=== PATIENT | female | born 1960 | race Caucasian/White ===

== ENCOUNTER → 2017-08-15 | Outpatient (CLI) | payer OTHER ==
[~2017-08-15] MED LIST: ALBU90OI INH; AZIT250 PO; CEPH500 PO; CLIN150 PO; CODACE30 PO; DIAZ5 PO; IBUP600 PO; IBUP800 PO; KETO10 PO; MUPI2TC TOP; NAPR500 PO; NAPR500ERA PO; Naprosyn500 MG PO; Norco 5-325 Ta1 EACH PO; OXYACE5T PO; PENVK500 PO; PRED10 PO; PRED20 PO; PROCODE120 PO; PROM25 PO; Percocet 5-3251 EACH PO; TAMS.4ER PO; TRAM50 PO; Veetids 500500 MG PO; Vistaril25 MG PO; Zithromax250 MG PO; Zofran Odt4 MG SL
[2017-08-15 14:47] LABS: BASOPHILS ABSOLUTE AUTO 0.03 K/mm3 (0.00-0.23); BASOPHILS PERCENT AUTO 0 % (0-2); EOSINOPHILS ABSOLUTE AUTO 0.08 K/mm3 (0.00-0.68); EOSINOPHILS PERCENT AUTO 1 % (0-6); Hematocrit 41.7 % (33.0-51.0); Hemoglobin 14.1 g/dL (11.5-16.0); IMMATURE GRAN ABSOLUTE AUTO 0.02 K/mm3 (0.00-0.10); IMMATURE GRAN PERCENT AUTO 0 % (0-1); LYMPHOCYTES ABSOLUTE AUTO 2.55 K/mm3 (0.84-5.20); LYMPHOCYTES PERCENT AUTO 28 % (21-46); MONOCYTES ABSOLUTE AUTO 1.04 K/mm3 (0.16-1.47); MONOCYTES PERCENT AUTO 12 % (4-13); Mean Corpuscular HGB 29.7 pg (26.0-34.0); Mean Corpuscular HGB Conc 33.8 g/dL (31.5-36.5); Mean Corpuscular Volume 88 fL (80-100); Mean Platelet Volume 9.5 fL (9.1-12.4); NEUTROPHILS ABSOLUTE AUTO 5.27 K/mm3 (1.96-9.15); NEUTROPHILS PERCENT AUTO 59 % (41-73); Platelet Count 496 K/mm3 (150-400); RDW Coefficient Variation 15.4 % (11.7-14.2); RDW Standard Deviation 49.3 fL (35.1-46.3); Red Blood Cell Count 4.75 M/mm3 (3.80-5.20); White Blood Cell Count 8.99 K/mm3 (4.00-11.30)
[2017-08-15 14:57] LABS: Alanine Aminotransfer (ALT/SGP 22 U/L (12-78); Albumin, Blood 3.5 g/dL (3.4-5.0); Albumin/Globulin Ratio 0.9 (0.8-1.8); Alk Phos 97 U/L (40-126); Anion Gap 10 mmol/L (6-16); Aspartate Aminotrans (AST/SGOT 15 U/L (12-37); Bilirubin, Total 0.4 mg/dL (0.1-1.0); Blood Urea Nitrogen 12 mg/dL (8-24); Bun/Creatinine Ratio 20.3 (12.0-20.0); CO2, Blood 27 mmol/L (21-32); Calcium, Blood 9.4 mg/dL (8.5-10.1); Chloride, Blood 103 mmol/L (98-108); Creatinine, Blood 0.59 mg/dL (0.40-1.00); Globulin, Blood 4.1 g/dL (2.2-4.0); Glomerular Filtration Rate >60 (60-); Glucose, Blood 90 mg/dL (70-99); Potassium, Blood 3.8 mmol/L (3.5-5.5); Sodium, Blood 140 mmol/L (136-145); Total Protein, Blood 7.6 g/dL (6.4-8.2)
== END ==
LOC: LAB EV 14:41
PROVIDERS: Physician Assistant Medical
DX: R10.31 Right lower quadrant pain (principal)
CPT/HCPCS: 80053; 85025

== ENCOUNTER 2017-12-09 15:32 | Emergency (ER) | payer OTHER ==
[~2017-12-09] VITALS: Ht 162.6 cm; Wt 69.8 kg
== END 2017-12-09 16:30 | disposition home or self-care (01) ==
LOC: ER 15:32
DX: S01.81XA Laceration without foreign body of other part of head, initial encounter (principal); Z88.5 Allergy status to narcotic agent; W22.8XXA Striking against or struck by other objects, initial encounter
CPT/HCPCS: J1885

== ENCOUNTER → 2018-07-16 | Outpatient (CLI) | payer OTHER | END | disposition home or self-care (01) | LOC: LAB SHORT 14:02 → PLD 14:02 | DX: L82.0 Inflamed seborrheic keratosis (principal) | CPT/HCPCS: 88305 ==

== ENCOUNTER 2018-12-06 07:40 | Day surgery (SDC) | payer OTHER ==
[~2018-12-06] VITALS: Wt 73.6 kg
--- NOTE | 2018-12-06 08:48 | NUR ---
Ambulatory in Day Surgery History, Chart, Medications and Allergies reviewed before start of procedure.Lungs clear T/O to Auscultation. Patient States Post-Procedure ride home has been arranged.
--- NOTE | 2018-12-06 09:33 | NUR ---
12/06/18 0933 Justin Carmona PATIENT DETERMINED TO BE ASA APPROPRIATE FOR PROPOFOL SEDATION PRIOR TO START OF PROCEDURE BY . 3-LEAD EKG REVIEWED WITH PHYSICIAN PRIOR TO START OF PROCEDURE.PATIENT CONFIRMS NPO STATUS AND AGREES WITH SCHEDULED PROCEDURE.History, Chart, Medications and Allergies reviewed before start of procedure.MONITOR INTACT WITH CONTINUOUS PULSE OXIMETRY AND INTERMITTENT BP.O2 VIA N/C INTACT THROUGHOUT SEDATION/PROCEDURE.HURRICAINE SPRAY TO OROPHARYX.Bite Block Placed
--- NOTE | 2018-12-06 10:33 | NUR ---
Discharge instructions reviewed with patient. Patient verbalizes understanding. Copy given to patient to take home. Patient States Post-Procedure ride home has been arranged.
== END 2018-12-06 10:40 | disposition home or self-care (01) ==
LOC: ORSCMMR 07:40 → ORD 09:00 → ORSCMMR 10:40
PROVIDERS: Internal Medicine Gastroenterology
PROC: 0DB68ZX Excision of Stomach, Via Natural or Artificial Opening Endoscopic, Diagnostic (ICD-10-PCS; principal; 2018-12-06 09:00)
PROC: 0DB98ZX Excision of Duodenum, Via Natural or Artificial Opening Endoscopic, Diagnostic (ICD-10-PCS; principal; 2018-12-06 09:00)
PROC: 0DB48ZX Excision of Esophagogastric Junction, Via Natural or Artificial Opening Endoscopic, Diagnostic (ICD-10-PCS; principal; 2018-12-06 09:00)
DX: R10.13 Epigastric pain (principal); K29.70 Gastritis, unspecified, without bleeding; Z79.899 Other long term (current) drug therapy
CPT/HCPCS: 88305; 88342; J2704; J7120

== ENCOUNTER 2018-12-09 12:46 | Emergency (ER) | payer OTHER ==
[~2018-12-09] VITALS: Ht 162.6 cm; Wt 73.5 kg
[2018-12-09] MEDS ORDERED: CEPH500 PO (13:11)
[2018-12-09] MEDS ORDERED: ONDA4ODT MM (13:11)
== END 2018-12-09 13:16 | disposition home or self-care (01) ==
LOC: ER 12:46
DX: I88.9 Nonspecific lymphadenitis, unspecified (principal); Z88.5 Allergy status to narcotic agent
CPT/HCPCS: 99283

== ENCOUNTER → 2019-04-11 | Outpatient (CLI) | payer OTHER ==
[~2019-04-11] MED LIST changes: +ONDA4ODT MM
[2019-04-12 13:42] LABS: Stool Occult Bld Immuno 1 Negative (NEGATIVE)
== END | disposition home or self-care (01) ==
LOC: LAB 20:20 → LAB SHORT 20:20
PROVIDERS: Physician Assistant
DX: Z12.11 Encounter for screening for malignant neoplasm of colon (principal)
CPT/HCPCS: G0328

== ENCOUNTER 2019-04-30 08:26 | Day surgery (SDC) | payer OTHER ==
[~2019-04-30] VITALS: Ht 162.6 cm; Wt 66.8 kg
[~2019-04-30 08:26] MED LIST changes: +ENOX40I SC; +Flonase 0.05% N16 GM; +HYDR1TAB94 PO; +METR500 PO; +NEOM500 PO; +ZANTAC
[2019-04-30] MEDS ORDERED: Percocet 5-3251 EACH PO (08:54)
[2019-04-30] MEDS ORDERED: SINEMET 25-1001 EACH PO (08:56)
[2019-04-30] MEDS ORDERED: Senna-Docusate1 EACH PO (09:38)
--- NOTE | 2019-04-30 13:09 | NUR ---
1250- PT STATES ICE PACK REALLY HAS HELPED. [facility] DRG C/D/I. VSS. PT HERE. Discharge instructions reviewed with patient. Patient verbalizes understanding. Copy given to patient to take home. Discharged via wheelchair to private car for ride home.
[2019-05-17] MEDS ORDERED: Zithromax250 MG PO (17:19)
[2019-05-17] MEDS ORDERED: ROBITUSSIN NIG237 ML PO (17:19)
[2019-05-17] MEDS ORDERED: Sudogest30 MG PO (17:19)
[2019-05-17] MEDS ORDERED: Flonase 0.05% N16 GM (17:19)
== END 2019-04-30 22:40 | disposition home or self-care (01) ==
LOC: ORSCMMR 08:26 → ORD 08:30 → ORSCMMR 10:00 → ORD 10:00 → ORSCMMR 22:40
PROVIDERS: Surgery
PROC: B5131ZA Fluoroscopy of Right Jugular Veins using Low Osmolar Contrast, Guidance (ICD-10-PCS; principal; 2019-04-30 10:00)
PROC: 05HM33Z Insertion of Infusion Device into Right Internal Jugular Vein, Percutaneous Approach (ICD-10-PCS; principal; 2019-04-30 10:00)
DX: C56.1 Malignant neoplasm of right ovary (principal); I87.8 Other specified disorders of veins; E78.5 Hyperlipidemia, unspecified; K21.9 Gastro-esophageal reflux disease without esophagitis; Z79.899 Other long term (current) drug therapy
CPT/HCPCS: 77001; C1788; J0690; J1100; J1642; J2250; J2370; J2405; J2704; J3010; J7120

== ENCOUNTER 2019-05-28 17:47 | Emergency (ER) | payer OTHER ==
[~2019-05-28] VITALS: Ht 162.6 cm; Wt 65.8 kg
[~2019-05-28 17:47] MED LIST changes: +ROBITUSSIN NIG237 ML PO; +SINEMET 25-1001 EACH PO; +Senna-Docusate1 EACH PO; +Sudogest30 MG PO
[2019-05-28 18:29] LABS: Influenza A Negative (NEGATIVE); Influenza B Negative (NEGATIVE)
[2019-05-28 18:49] LABS: BASOPHILS ABSOLUTE AUTO 0.05 K/mm3 (0.00-0.23); BASOPHILS PERCENT AUTO 1 % (0-2); EOSINOPHILS ABSOLUTE AUTO 0.17 K/mm3 (0.00-0.68); EOSINOPHILS PERCENT AUTO 2 % (0-6); Hematocrit 39.2 % (33.0-51.0); Hemoglobin 13.1 g/dL (11.5-16.0); IMMATURE GRAN ABSOLUTE AUTO 0.03 K/mm3 (0.00-0.10); IMMATURE GRAN PERCENT AUTO 0 % (0-1); LYMPHOCYTES ABSOLUTE AUTO 2.02 K/mm3 (0.84-5.20); LYMPHOCYTES PERCENT AUTO 20 % (21-46); MONOCYTES ABSOLUTE AUTO 0.15 K/mm3 (0.16-1.47); MONOCYTES PERCENT AUTO 2 % (4-13); Mean Corpuscular HGB 29.2 pg (26.0-34.0); Mean Corpuscular HGB Conc 33.4 g/dL (31.5-36.5); Mean Corpuscular Volume 87 fL (80-100); Mean Platelet Volume 10.2 fL (9.1-12.4); NEUTROPHILS ABSOLUTE AUTO 7.65 K/mm3 (1.96-9.15); NEUTROPHILS PERCENT AUTO 76 % (41-73); Platelet Count 386 K/mm3 (150-400); RDW Coefficient Variation 19.8 % (11.7-14.2); Red Blood Cell Count 4.49 M/mm3 (3.80-5.20); White Blood Cell Count 10.07 K/mm3 (4.00-11.30)
[2019-05-28 19:00] LABS: Alanine Aminotransfer (ALT/SGP 40 U/L (12-78); Albumin, Blood 3.5 g/dL (3.4-5.0); Albumin/Globulin Ratio 0.9 (0.8-1.8); Alk Phos 105 U/L (50-136); Anion Gap 8 mmol/L (6-16); Aspartate Aminotrans (AST/SGOT 21 U/L (12-37); Bilirubin, Total 0.4 mg/dL (0.1-1.0); Blood Urea Nitrogen 13 mg/dL (8-24); Bun/Creatinine Ratio 28.4 (12.0-20.0); CO2, Blood 25 mmol/L (21-32); Calcium, Blood 9.3 mg/dL (8.5-10.1); Chloride, Blood 101 mmol/L (98-108); Creatinine, Blood 0.46 mg/dL (0.40-1.00); Globulin, Blood 3.9 g/dL (2.2-4.0); Glomerular Filtration Rate >60 (60-); Glucose, Blood 173 mg/dL (70-99); Potassium, Blood 3.8 mmol/L (3.5-5.5); Sodium, Blood 134 mmol/L (136-145); Total Protein, Blood 7.4 g/dL (6.4-8.2)
== END 2019-05-28 20:32 | disposition home or self-care (01) ==
LOC: ER 17:47
PROVIDERS: Physician Assistant
DX: M54.2 Cervicalgia (principal); E04.1 Nontoxic single thyroid nodule
CPT/HCPCS: 36415; 70491; 80053; 85025; 87081; 87430; 87804; 96374; 99283-25; J1170; Q9967

== ENCOUNTER 2019-06-07 22:32 | Emergency (ER) | payer OTHER ==
[~2019-06-07] VITALS: Ht 162.6 cm; Wt 65.8 kg
[2019-06-07 23:25] LABS: BASOPHILS ABSOLUTE AUTO 0.02 K/mm3 (0.00-0.23); BASOPHILS PERCENT AUTO 0 % (0-2); EOSINOPHILS ABSOLUTE AUTO 0.09 K/mm3 (0.00-0.68); EOSINOPHILS PERCENT AUTO 2 % (0-6); Hematocrit 33.5 % (33.0-51.0); Hemoglobin 11.1 g/dL (11.5-16.0); IMMATURE GRAN ABSOLUTE AUTO 0.02 K/mm3 (0.00-0.10); IMMATURE GRAN PERCENT AUTO 0 % (0-1); LYMPHOCYTES PERCENT AUTO 54 % (21-46); MONOCYTES ABSOLUTE AUTO 1.35 K/mm3 (0.16-1.47); MONOCYTES PERCENT AUTO 30 % (4-13); Mean Corpuscular HGB 29.4 pg (26.0-34.0); Mean Corpuscular HGB Conc 33.1 g/dL (31.5-36.5); Mean Corpuscular Volume 89 fL (80-100); Mean Platelet Volume 9.1 fL (9.1-12.4); NEUTROPHILS ABSOLUTE AUTO 0.59 K/mm3 (1.96-9.15); NEUTROPHILS PERCENT AUTO 13 % (41-73); Platelet Count 402 K/mm3 (150-400); RDW Coefficient Variation 19.9 % (11.7-14.2); RDW Standard Deviation 63.9 fL (35.1-46.3); Red Blood Cell Count 3.77 M/mm3 (3.80-5.20); White Blood Cell Count 4.47 K/mm3 (4.00-11.30)
[2019-06-07 23:45] LABS: Alanine Aminotransfer (ALT/SGP 29 U/L (12-78); Albumin, Blood 3.2 g/dL (3.4-5.0); Albumin/Globulin Ratio 0.9 (0.8-1.8); Alk Phos 108 U/L (50-136); Anion Gap 7 mmol/L (6-16); Aspartate Aminotrans (AST/SGOT 20 U/L (12-37); Bilirubin, Total 0.2 mg/dL (0.1-1.0); Blood Urea Nitrogen 12 mg/dL (8-24); Bun/Creatinine Ratio 28.4 (12.0-20.0); CO2, Blood 25 mmol/L (21-32); Calcium, Blood 8.8 mg/dL (8.5-10.1); Chloride, Blood 110 mmol/L (98-108); Creatinine, Blood 0.42 mg/dL (0.40-1.00); Globulin, Blood 3.5 g/dL (2.2-4.0); Glomerular Filtration Rate >60 (60-); Glucose, Blood 115 mg/dL (70-99); Potassium, Blood 3.6 mmol/L (3.5-5.5); Sodium, Blood 142 mmol/L (136-145); Total Protein, Blood 6.7 g/dL (6.4-8.2); Troponin I <0.015 ng/mL (0.000-0.040)
[2019-06-08] MEDS ORDERED: Norco 5-325 Ta1 EACH PO (00:49)
== END 2019-06-08 01:20 | disposition home or self-care (01) ==
LOC: ER 22:32
PROVIDERS: Physician Assistant
DX: R07.9 Chest pain, unspecified (principal)
CPT/HCPCS: 36415; 71046; 71260; 80053; 84484; 85025; 85379; 93005; 93010; 96374; 96375; 99285-25; J1170; J2405; Q9967

== ENCOUNTER → 2019-08-21 | Outpatient (CLI) | payer MEDICARE, OTHER | LOC: LAB SHORT 18:51 → LAB EV 18:51 | DX: L98.9 Disorder of the skin and subcutaneous tissue, unspecified (principal) | CPT/HCPCS: 87070; 87205 ==

== ENCOUNTER 2019-09-25 14:28 | Emergency (ER) | payer MEDICARE, OTHER ==
[~2019-09-25] VITALS: Ht 162.6 cm; Wt 73.5 kg
[2019-09-25 15:55] LABS: BASOPHILS ABSOLUTE AUTO 0.03 K/mm3 (0.00-0.23); BASOPHILS PERCENT AUTO 0 % (0-2); EOSINOPHILS ABSOLUTE AUTO 0.01 K/mm3 (0.00-0.68); EOSINOPHILS PERCENT AUTO 0 % (0-6); Hematocrit 36.8 % (33.0-51.0); Hemoglobin 12.5 g/dL (11.5-16.0); IMMATURE GRAN ABSOLUTE AUTO 0.07 K/mm3 (0.00-0.10); IMMATURE GRAN PERCENT AUTO 1 % (0-1); LYMPHOCYTES ABSOLUTE AUTO 0.95 K/mm3 (0.84-5.20); LYMPHOCYTES PERCENT AUTO 7 % (21-46); MONOCYTES ABSOLUTE AUTO 1.35 K/mm3 (0.16-1.47); MONOCYTES PERCENT AUTO 10 % (4-13); Mean Corpuscular HGB 32.4 pg (26.0-34.0); Mean Corpuscular Volume 95 fL (80-100); Mean Platelet Volume 9.3 fL (9.1-12.4); NEUTROPHILS ABSOLUTE AUTO 11.66 K/mm3 (1.96-9.15); NEUTROPHILS PERCENT AUTO 83 % (41-73); Platelet Count 331 K/mm3 (150-400); RDW Coefficient Variation 16.8 % (11.7-14.2); RDW Standard Deviation 58.5 fL (35.1-46.3); Red Blood Cell Count 3.86 M/mm3 (3.80-5.20); White Blood Cell Count 14.07 K/mm3 (4.00-11.30)
[2019-09-25 16:15] LABS: Alanine Aminotransfer (ALT/SGP 74 U/L (12-78); Albumin, Blood 3.5 g/dL (3.4-5.0); Albumin/Globulin Ratio 0.9 (0.8-1.8); Alk Phos 113 U/L (50-136); Anion Gap 7 mmol/L (6-16); Aspartate Aminotrans (AST/SGOT 129 U/L (12-37); Bilirubin, Total 0.6 mg/dL (0.1-1.0); Blood Urea Nitrogen 16 mg/dL (8-24); Bun/Creatinine Ratio 29.4 (12.0-20.0); CO2, Blood 26 mmol/L (21-32); Calcium, Blood 9.4 mg/dL (8.5-10.1); Chloride, Blood 107 mmol/L (98-108); Creatinine, Blood 0.55 mg/dL (0.40-1.00); Globulin, Blood 3.7 g/dL (2.2-4.0); Glomerular Filtration Rate >60 (60-); Glucose, Blood 131 mg/dL (70-99); Potassium, Blood 3.5 mmol/L (3.5-5.5); Sodium, Blood 140 mmol/L (136-145); Total Protein, Blood 7.2 g/dL (6.4-8.2); Troponin I <0.015 ng/mL (0.000-0.040)
[2019-09-25 17:53] LABS: Source, Urine Clean Catch
[2019-09-25 17:57] LABS: Bilirubin, Urine Neg (Neg); Blood, Urine Neg (Neg); Glucose Qualitative, Urine Neg (Neg); Ketones, Urine 1+ (Neg); Leukocyte Esterase, Urine Neg (Neg); Nitrite, Urine Neg (Neg); Protein, Urine Neg (Neg); Urobilinogen, Urine NORM (Normal)
[2019-09-25] MEDS ORDERED: ONDA4ODT SL (17:59)
[2019-09-25] MEDS ORDERED: Pepcid20 MG PO (17:59)
[2019-09-25 18:07] LABS: Appearance, Urine Clear (Clear); Color, Urine Yellow (P-Yellow)
== END 2019-09-25 18:44 | disposition home or self-care (01) ==
LOC: ER 14:28
PROVIDERS: Physician Assistant
DX: R10.13 Epigastric pain (principal); R07.9 Chest pain, unspecified; M54.9 Dorsalgia, unspecified; G89.29 Other chronic pain; Z88.5 Allergy status to narcotic agent; Z85.43 Personal history of malignant neoplasm of ovary; Z92.21 Personal history of antineoplastic chemotherapy
CPT/HCPCS: 36415; 71046; 80053; 81003; 83690; 84484; 85025; 93005; 93010; 96361; 96374; 96375; 99284-25; J0780; J2405; J3010; J7030; J7120

== ENCOUNTER 2019-10-11 13:33 | Emergency (ER) | payer MEDICARE, OTHER ==
[~2019-10-11] VITALS: Ht 162.6 cm; Wt 72.6 kg
[~2019-10-11 13:33] MED LIST changes: +ONDA4ODT SL; +Pepcid20 MG PO
== END 2019-10-11 16:27 | disposition left against medical advice (07) ==
LOC: ER 13:33
DX: Z53.21 Procedure and treatment not carried out due to patient leaving prior to being seen by health care provider (principal)

== ENCOUNTER 2019-10-19 16:55 | Emergency (ER) | payer MEDICARE, OTHER ==
[~2019-10-19] VITALS: Ht 162.6 cm; Wt 70.8 kg
[2019-10-19] MEDS ORDERED: Augmentin 875-1 EACH PO (17:08)
[2019-10-19] MEDS ORDERED: Roxicodone5 MG PO ×2 (17:08→17:09)
== END 2019-10-19 17:24 | disposition home or self-care (01) ==
LOC: ER 16:55
DX: J32.0 Chronic maxillary sinusitis (principal); M54.31 Sciatica, right side
CPT/HCPCS: 99283

== ENCOUNTER 2019-10-22 15:33 | Observation (INO) | payer MEDICARE, OTHER ==
[~2019-10-22] VITALS: Ht 162.6 cm; Wt 65.1 kg
[~2019-10-22 15:33] MED LIST changes: +Augmentin 875-1 EACH PO; +Roxicodone5 MG PO
[2019-10-22 16:30] LABS: BASOPHILS ABSOLUTE AUTO 0.05 K/mm3 (0.00-0.23); BASOPHILS PERCENT AUTO 1 % (0-2); EOSINOPHILS ABSOLUTE AUTO 0.01 K/mm3 (0.00-0.68); EOSINOPHILS PERCENT AUTO 0 % (0-6); Hematocrit 38.5 % (33.0-51.0); IMMATURE GRAN ABSOLUTE AUTO 0.03 K/mm3 (0.00-0.10); IMMATURE GRAN PERCENT AUTO 0 % (0-1); LYMPHOCYTES ABSOLUTE AUTO 1.85 K/mm3 (0.84-5.20); LYMPHOCYTES PERCENT AUTO 20 % (21-46); MONOCYTES PERCENT AUTO 14 % (4-13); Mean Corpuscular HGB 32.6 pg (26.0-34.0); Mean Corpuscular HGB Conc 33.8 g/dL (31.5-36.5); Mean Corpuscular Volume 97 fL (80-100); Mean Platelet Volume 9.8 fL (9.1-12.4); NEUTROPHILS ABSOLUTE AUTO 5.82 K/mm3 (1.96-9.15); NEUTROPHILS PERCENT AUTO 64 % (41-73); Platelet Count 316 K/mm3 (150-400); RDW Coefficient Variation 14.6 % (11.7-14.2); RDW Standard Deviation 52.4 fL (35.1-46.3); Red Blood Cell Count 3.99 M/mm3 (3.80-5.20); White Blood Cell Count 9.06 K/mm3 (4.00-11.30)
[2019-10-22 16:49] LABS: Alanine Aminotransfer (ALT/SGP 20 U/L (12-78); Albumin, Blood 3.4 g/dL (3.4-5.0); Albumin/Globulin Ratio 0.8 (0.8-1.8); Alk Phos 95 U/L (50-136); Anion Gap 8 mmol/L (6-16); Aspartate Aminotrans (AST/SGOT 22 U/L (12-37); Bilirubin, Total 0.3 mg/dL (0.1-1.0); Blood Urea Nitrogen 18 mg/dL (8-24); Bun/Creatinine Ratio 37.3 (12.0-20.0); CO2, Blood 25 mmol/L (21-32); Calcium, Blood 9.3 mg/dL (8.5-10.1); Chloride, Blood 101 mmol/L (98-108); Creatinine, Blood 0.48 mg/dL (0.40-1.00); Globulin, Blood 4.5 g/dL (2.2-4.0); Glomerular Filtration Rate >60 (60-); Glucose, Blood 101 mg/dL (70-99); Potassium, Blood 3.4 mmol/L (3.5-5.5); Sodium, Blood 134 mmol/L (136-145); Total Protein, Blood 7.9 g/dL (6.4-8.2)
--- NOTE | 2019-10-22 19:04 | NUR ---
Received report from EDDI Gonzalez @ 1830. Patient arrived from ER @ 1900 via stretcher and transferred self independently. Patient reports flank pain r/t cough, will medicate per EMAR. Called and spoke with Dr. Zheng RE emilio fried and Va[facility]. Per Dr. Zheng, he will put in the orders. Settled patient to room, call light near, bed in lowest position. Hand off report given to night RN.
[2019-10-22 19:12] LABS: Adenovirus Not Detected (NOT DETECT); Bordetella pertussis Not Detected (NOT DETECT); Chlamydophila pneumoniae Not Detected (NOT DETECT); Coronavirus 229E Not Detected (NOT DETECT); Coronavirus HKU1 Not Detected (NOT DETECT); Coronavirus NL63 Not Detected (NOT DETECT); Coronavirus OC43 Not Detected (NOT DETECT); Human Metapneumovirus Not Detected (NOT DETECT); Human Rhinovirus/Enterovirus Not Detected (NOT DETECT); Influenza A/2009-H1 Not Detected (NOT DETECT); Influenza A/H1 Not Detected (NOT DETECT); Influenza A/H3 Not Detected (NOT DETECT); Influenza B Not Detected (NOT DETECT); Mycoplasma pneumoniae Detected (NOT DETECT); Parainfluenza Virus 1 Not Detected (NOT DETECT); Parainfluenza Virus 2 Not Detected (NOT DETECT); Parainfluenza Virus 3 Not Detected (NOT DETECT); Parainfluenza Virus 4 Not Detected (NOT DETECT); Respiratory Syncytial Virus Not Detected (NOT DETECT)
[2019-10-22] MEDS ORDERED: Flonase 0.05% N16 GM (21:28)
--- NOTE | 2019-10-23 00:01 | NUR ---
NAUSEA PT REPORTS NAUSEA. USUALLY TAKE 4-8MG SL ZOFRAN QID PRN @HOME. CALLED RACHEAL W & SHE ORDERED 4-8 MG IV ZOFRAN Q6 PRN. WILL MEDICATE PER ORDERS & CONTINUE TO MONITOR PT.
--- NOTE | 2019-10-23 04:17 | NUR ---
SHIFT SUMMARY AOX4. VSS. REPORTED NAUSEA, MEDICATED 1X W/ZOFRAN & NO FURTHER NAUSEA. STATES DYSPNEA WORSE W/ACTIVITY. E/U RESPIRATIONS. SPO2 >90% ON RA, OT SPO2 READ 88% ASKED MEDICAL SOCIAL WORKER & HE STATES IT WASN'T 88% ORIGINALLY WHEN VS CHECKED & MUST HAVE READ INCORRECTLY, WILL RECHECK THIS AM. LUNGS SOUND DIM. HAS CONSTANT DRY COUGH W/OCCASIONAL YELLOW SPUTUM. RESP PANEL + FOR M. PNEUMONIA. ON ISOLATION FOR R/O COVID. REPORTS PAIN IN L SIDE & HEADACHE, MEDICATED 2X W/OXYCODONE PER ORDERS & PT REPORTS RELIEF. IND IN ROOM. CALL LIGHT IN REACH. WCTM.
[2019-10-23 04:52] LABS: BASOPHILS ABSOLUTE AUTO 0.03 K/mm3 (0.00-0.23); BASOPHILS PERCENT AUTO 0 % (0-2); EOSINOPHILS ABSOLUTE AUTO 0.03 K/mm3 (0.00-0.68); EOSINOPHILS PERCENT AUTO 0 % (0-6); Hematocrit 33.7 % (33.0-51.0); Hemoglobin 11.2 g/dL (11.5-16.0); IMMATURE GRAN ABSOLUTE AUTO 0.02 K/mm3 (0.00-0.10); IMMATURE GRAN PERCENT AUTO 0 % (0-1); LYMPHOCYTES ABSOLUTE AUTO 1.88 K/mm3 (0.84-5.20); LYMPHOCYTES PERCENT AUTO 23 % (21-46); MONOCYTES ABSOLUTE AUTO 1.22 K/mm3 (0.16-1.47); MONOCYTES PERCENT AUTO 15 % (4-13); Mean Corpuscular HGB 31.8 pg (26.0-34.0); Mean Corpuscular HGB Conc 33.2 g/dL (31.5-36.5); Mean Corpuscular Volume 96 fL (80-100); Mean Platelet Volume 9.6 fL (9.1-12.4); NEUTROPHILS ABSOLUTE AUTO 4.93 K/mm3 (1.96-9.15); NEUTROPHILS PERCENT AUTO 61 % (41-73); Platelet Count 295 K/mm3 (150-400); RDW Coefficient Variation 14.8 % (11.7-14.2); RDW Standard Deviation 52.1 fL (35.1-46.3); Red Blood Cell Count 3.52 M/mm3 (3.80-5.20); White Blood Cell Count 8.11 K/mm3 (4.00-11.30)
[2019-10-23] MEDS ORDERED: AZIT500 PO (11:46)
[2019-10-23] MEDS ORDERED: BENZ100A PO (11:47)
--- NOTE | 2019-10-23 12:45 | NUR ---
DISCHARGE INSTRUCTIONS GIVEN TO PATIENT WELL EDUCATIONAL MATERIAL. ALL QUESTIONS ANSWERED. IV REMOVED. PATIENT RESTING IN ROOM AT THIS TIME, STATES HER WILL COME TO PICK HER UP AT 1330.
--- NOTE | 2019-10-23 14:13 | NUR ---
PATIENT WAS DISCHARGED AT 1400. ASSISTED OUT IN WHEELCHAIR. TRANSPORTED PATIENT HOME.
== END 2019-10-23 14:00 | disposition home or self-care (01) ==
LOC: ER 15:33 → MEDS 15:34
PROVIDERS: Emergency Medicine; ADMIT Hospitalist
DX: J10.00 Influenza due to other identified influenza virus with unspecified type of pneumonia (principal); C56.9 Malignant neoplasm of unspecified ovary; I48.0 Paroxysmal atrial fibrillation; M54.30 Sciatica, unspecified side; E87.1 Hypo-osmolality and hyponatremia; E86.1 Hypovolemia; E87.6 Hypokalemia; E86.0 Dehydration; Z88.5 Allergy status to narcotic agent; Z79.891 Long term (current) use of opiate analgesic; Z79.899 Other long term (current) drug therapy; Z20.828 Contact with and (suspected) exposure to other viral communicable diseases
CPT/HCPCS: 0099U; 36415; 71045; 80053; 83605; 85025; 96365; 96366; 96368; 96372; 96375; 99285-25; A9270; G0378; J0456; J0696; J1650; J2405; J7030; J7050; U0003

== ENCOUNTER 2019-11-29 16:00 | Emergency (ER) | payer MEDICARE, OTHER ==
[~2019-11-29] VITALS: Ht 162.6 cm; Wt 65.3 kg
[~2019-11-29 16:00] MED LIST changes: +AZIT500 PO; +BENZ100A PO
== END 2019-11-29 18:30 | disposition home or self-care (01) ==
LOC: ER 16:00
DX: L76.22 Postprocedural hemorrhage of skin and subcutaneous tissue following other procedure (principal); Z88.5 Allergy status to narcotic agent; Z79.899 Other long term (current) drug therapy
CPT/HCPCS: 99282

== ENCOUNTER 2020-07-29 23:00 | Inpatient (IN) | payer MEDICARE, OTHER ==
[~2020-07-29] VITALS: Ht 162.6 cm; Wt 71.1 kg
[~2020-07-29 23:00] MED LIST changes: +BENADRYL25 MG PO; +HYDROCODONE-AC1 EA10 PO; +OXYACE7.5T PO; +Prednisone20 MG PO
[2020-07-29 23:33] LABS: BASOPHILS ABSOLUTE AUTO 0.04 K/mm3 (0.00-0.23); BASOPHILS PERCENT AUTO 1 % (0-2); EOSINOPHILS ABSOLUTE AUTO 0.09 K/mm3 (0.00-0.68); EOSINOPHILS PERCENT AUTO 1 % (0-6); Hematocrit 39.7 % (33.0-51.0); Hemoglobin 13.8 g/dL (11.5-16.0); IMMATURE GRAN ABSOLUTE AUTO 0.02 K/mm3 (0.00-0.10); IMMATURE GRAN PERCENT AUTO 0 % (0-1); LYMPHOCYTES PERCENT AUTO 40 % (21-46); MONOCYTES PERCENT AUTO 13 % (4-13); Mean Corpuscular HGB 30.5 pg (26.0-34.0); Mean Corpuscular HGB Conc 34.8 g/dL (31.5-36.5); Mean Corpuscular Volume 88 fL (80-100); Mean Platelet Volume 9.6 fL (9.1-12.4); NEUTROPHILS ABSOLUTE AUTO 3.76 K/mm3 (1.96-9.15); NEUTROPHILS PERCENT AUTO 45 % (41-73); Platelet Count 433 K/mm3 (150-400); Red Blood Cell Count 4.52 M/mm3 (3.80-5.20); White Blood Cell Count 8.31 K/mm3 (4.00-11.30)
[2020-07-29 23:48] LABS: Alanine Aminotransfer (ALT/SGP 22 U/L (12-78); Albumin, Blood 3.4 g/dL (3.4-5.0); Albumin/Globulin Ratio 0.9 (0.8-1.8); Alk Phos 100 U/L (50-136); Anion Gap 9 mmol/L (6-16); Aspartate Aminotrans (AST/SGOT 20 U/L (12-37); Bilirubin, Total 0.3 mg/dL (0.1-1.0); Blood Urea Nitrogen 23 mg/dL (8-24); CO2, Blood 24 mmol/L (21-32); Calcium, Blood 9.4 mg/dL (8.5-10.1); Chloride, Blood 106 mmol/L (98-108); Creatinine, Blood 0.54 mg/dL (0.40-1.00); Globulin, Blood 3.8 g/dL (2.2-4.0); Glomerular Filtration Rate >60 (60-); Glucose, Blood 116 mg/dL (70-99); Potassium, Blood 3.7 mmol/L (3.5-5.5); Sodium, Blood 139 mmol/L (136-145); Total Protein, Blood 7.2 g/dL (6.4-8.2)
[2020-07-30 01:17] LABS: Source, Urine Clean Catch
[2020-07-30 01:19] LABS: Appearance, Urine Clear (Clear); Bilirubin, Urine Neg (Neg); Blood, Urine Neg (Neg); Color, Urine Yellow (P-Yellow); Glucose Qualitative, Urine Neg (Neg); Ketones, Urine Neg (Neg); Leukocyte Esterase, Urine 1+ (Neg); Nitrite, Urine Neg (Neg); Protein, Urine Neg (Neg); Urobilinogen, Urine NORM (Normal)
[2020-07-30 01:29] LABS: Bacteria Many /hpf; Red Blood Cells, Urine Not Seen /hpf (0-2); Squamous Epithelial Cells Rare /hpf (Few); White Blood Cells, Urine 0-2 /hpf (0-5)
--- NOTE | 2020-07-30 03:00 | NUR ---
ADMISSION NOTE/SHIFT SUMMARY RECEIVED HAND OFF FROM Bing ZAMORA RN USING SBAR. TRANSPORTED TO ROOM 208 VIA STRETCHER. TRANSFERED SELF TO BED WITH STANDBY ASSITANCE, TOLERATED WELL. LYING IN SEMI FOWLERS WITH EYES OPEN. AAO X4, LEARY, NENAWOS ALL COMMANDS. ORIENTED TO ROOM, CALL SYSTEM, AND POC, VOICES UNDERSTANDING. REITERATED NEED FOR NPO, GIVEN ORAL CARE SUPPLIES. RESPIRATIONS EVEN AND UNLABORED ON ROOM AIR, LUNG SOUNDS CLEAR BILATERALLY. ABDOMEN SOFT AND NONDISTENDED. BOWEL SOUNDS NOTED IN ALL QUADS. RIGHT WRIST SL PIV IS PATENT, FLUSHING WITH EASE. GOOD PULSES PALPATED, NO EDEMA NOTED. DENIES PAIN, DISCOMFORT, OR FURTHER NEEDS AT THIS TIME. SAFETY MEASURES IN PLACE. ADMISSION ASSESSMENT IN PROGRESS. WILL CONTINUE TO MONITOR AND GIVE HAND OFF TO ONCOMING SHIFT USING SBAR DURING BEDSIDE REPORT.
[2020-07-30 03:52] LABS: Influenza A, PCR NEGATIVE (NEGATIVE); Influenza B, PCR NEGATIVE (NEGATIVE); Resp Syncytial Virus, PCR NEGATIVE (NEGATIVE); SARS-Cov-2 (COVID-19) PCR, MMC NEGATIVE (NEGATIVE)
--- NOTE | 2020-07-30 04:20 | NUR ---
MED PT GIVEN FULL BOTTLE OF GI COCKTAIL BY NURSING TOTALING 120ML WHEN ORDERED DOSE WAS 30ML. PT TOLERATED WELL. TELEMETRY SHOWS NSR 68. DENIES PAIN, DISCOMFORT, OR FURTHER NEEDS AFTER RINSING MOUTH OUT. SAFETY MEASURES IN PLACE. WILL CONTINUE TO MONITOR.
[2020-07-30 04:47] LABS: BASOPHILS ABSOLUTE AUTO 0.04 K/mm3 (0.00-0.23); BASOPHILS PERCENT AUTO 1 % (0-2); EOSINOPHILS ABSOLUTE AUTO 0.06 K/mm3 (0.00-0.68); EOSINOPHILS PERCENT AUTO 1 % (0-6); Hematocrit 38.1 % (33.0-51.0); Hemoglobin 12.9 g/dL (11.5-16.0); IMMATURE GRAN ABSOLUTE AUTO 0.02 K/mm3 (0.00-0.10); IMMATURE GRAN PERCENT AUTO 0 % (0-1); LYMPHOCYTES ABSOLUTE AUTO 1.99 K/mm3 (0.84-5.20); LYMPHOCYTES PERCENT AUTO 25 % (21-46); MONOCYTES ABSOLUTE AUTO 0.83 K/mm3 (0.16-1.47); MONOCYTES PERCENT AUTO 10 % (4-13); Mean Corpuscular HGB 30.4 pg (26.0-34.0); Mean Corpuscular HGB Conc 33.9 g/dL (31.5-36.5); Mean Corpuscular Volume 90 fL (80-100); Mean Platelet Volume 9.8 fL (9.1-12.4); NEUTROPHILS ABSOLUTE AUTO 5.12 K/mm3 (1.96-9.15); NEUTROPHILS PERCENT AUTO 64 % (41-73); Platelet Count 412 K/mm3 (150-400); RDW Coefficient Variation 14.1 % (11.7-14.2); RDW Standard Deviation 46.5 fL (35.1-46.3); Red Blood Cell Count 4.24 M/mm3 (3.80-5.20); White Blood Cell Count 8.06 K/mm3 (4.00-11.30)
[2020-07-30 05:13] LABS: Alanine Aminotransfer (ALT/SGP 23 U/L (12-78); Albumin, Blood 3.2 g/dL (3.4-5.0); Albumin/Globulin Ratio 0.9 (0.8-1.8); Alk Phos 96 U/L (50-136); Anion Gap 6 mmol/L (6-16); Aspartate Aminotrans (AST/SGOT 18 U/L (12-37); Bilirubin, Total 1.4 mg/dL (0.1-1.0); Blood Urea Nitrogen 20 mg/dL (8-24); Bun/Creatinine Ratio 38.2 (12.0-20.0); CO2, Blood 26 mmol/L (21-32); Calcium, Blood 8.9 mg/dL (8.5-10.1); Chloride, Blood 110 mmol/L (98-108); Creatinine, Blood 0.52 mg/dL (0.40-1.00); Globulin, Blood 3.6 g/dL (2.2-4.0); Glomerular Filtration Rate >60 (60-); Glucose, Blood 103 mg/dL (70-99); Potassium, Blood 3.8 mmol/L (3.5-5.5); Sodium, Blood 142 mmol/L (136-145); Total Protein, Blood 6.8 g/dL (6.4-8.2)
--- NOTE | 2020-07-30 09:04 | NUR ---
A&OX3, DENIES ANY NAUSEA, REPORTS HAVING "MILD" ABD PAIN, DENIES ANY NEED FOR PAIN MEDS AT THIS TIME, PT TO GO TO OR ON ABOUT AN HOUR PER DAY SURGERY RN, PT NOTIFIED, IV SL'D, PT OOB TO THE BATHROOM.
--- NOTE | 2020-07-30 10:29 | NUR ---
PATIENT WAS BROUGTH TO D/S FOR HER PROCEDURE. Ambulatory in Day Surgery. Robin Paws warming gown applied. Surgical site prepped with 2% Chlorhexidine cloth wipe. History, Chart, Medications and Allergies reviewed before start of procedure.Lungs clear T/O to Auscultation. Patient confirms NPO status and agrees with scheduled surgery. Pre-Op teaching done. Pt verbalizes understanding.
--- NOTE | 2020-07-30 10:47 | NUR ---
PT TO DAY SURGERY
--- NOTE | 2020-07-30 13:20 | NUR ---
PT MEDICATED X 3 FOR POST OP NAUSEA OVER LAST HALF HOUR. CURRENTLY RESTING ON STRETCHER WITH EYES CLOSED, DEEP EVEN BREATHING NOTED. EMESIS X 1 WITH 100 CC BILE COLORED OUTPUT. JUANPABLO DRAIN TO ABDOMEN DRNG SANGUINOUS FLUID. BULB SUCTION INTACT. MULTIPLE LAP SITES ON ABDOMEN SEALED WITH DERMABOND. NO BLEEDING NOTED.
--- NOTE | 2020-07-30 16:53 | NUR ---
AMBULATED TO THE BATHROOM WITH STANDBY ASSIST, PT STILL DROWSY BUT GAIT STEADY, DRY HEAVING WHEN FIRST UP BUT BETTER AFTER BACK IN BED, BP 105/59 WHILE UP, DENIES ANY NEED FOR PAIN MEDS AT THIS TIME, NO ACUTE CHANGES THIS SHIFT.
[2020-07-31 05:35] LABS: BASOPHILS ABSOLUTE AUTO 0.02 K/mm3 (0.00-0.23); BASOPHILS PERCENT AUTO 0 % (0-2); EOSINOPHILS PERCENT AUTO 0 % (0-6); Hematocrit 35.8 % (33.0-51.0); Hemoglobin 12.2 g/dL (11.5-16.0); IMMATURE GRAN ABSOLUTE AUTO 0.02 K/mm3 (0.00-0.10); IMMATURE GRAN PERCENT AUTO 0 % (0-1); LYMPHOCYTES ABSOLUTE AUTO 1.58 K/mm3 (0.84-5.20); LYMPHOCYTES PERCENT AUTO 18 % (21-46); MONOCYTES ABSOLUTE AUTO 1.11 K/mm3 (0.16-1.47); MONOCYTES PERCENT AUTO 12 % (4-13); Mean Corpuscular HGB 30.7 pg (26.0-34.0); Mean Corpuscular HGB Conc 34.1 g/dL (31.5-36.5); Mean Corpuscular Volume 90 fL (80-100); Mean Platelet Volume 10.1 fL (9.1-12.4); NEUTROPHILS ABSOLUTE AUTO 6.24 K/mm3 (1.96-9.15); NEUTROPHILS PERCENT AUTO 70 % (41-73); Platelet Count 402 K/mm3 (150-400); RDW Coefficient Variation 14.4 % (11.7-14.2); RDW Standard Deviation 47.3 fL (35.1-46.3); Red Blood Cell Count 3.97 M/mm3 (3.80-5.20); White Blood Cell Count 8.97 K/mm3 (4.00-11.30)
--- NOTE | 2020-07-31 05:47 | NUR ---
SHIFT SUMMARY LYING IN SEMI FOWLERS WITH EYES CLOSED, HAS RESTED WELL OFF AND ON. AAO X3, LEARY, FOLLOWS ALL COMMANDS. LAP SITES X5 TO ABDOMEN ARE C/D/I. JUANPABLO DRAIN WITH SS FLUID AND COMPRESSED BULB BOTED. PAIN MANAGED WITH PERCOCET PRN. HAS HAD ONE DOSE THIS SHFIT, RIGHT WRIST PIV IS PATENT, INFUSING LR AT 125ML/HR. ABLE TO AMBULATE TO BATHROOM WITH STANDBY ASSIST, TOLERATED WELL. VOIDING WITH OUT ISSUES. NO SIGNIFICANT CHANGES NOTED THIS SHIFT. DENIES PAIN, DISCOMFORTR, OR FURTHER NEEDS AT THIS TIME. SAFETY MEASURES IN PLACE. WILL CONTINUE TO MONITOR AND GIVE HAND OFF TO ONCOMING SHIFT USING SBAR DURING BEDSIDE REPORT.
--- NOTE | 2020-07-31 12:17 | NUR ---
ALLEGRA RECEIVED V.O. FROM DR. THOMAS TO START ALLEGRA NOW. ORDER UPDATED.
[2020-07-31] MEDS ORDERED: DOCU100 PO (15:12)
[2020-07-31] MEDS ORDERED: MIRALAX17 GM PO (15:13)
[2020-07-31] MEDS ORDERED: HYDR1TAB94 PO (15:13)
[2020-07-31] MEDS ORDERED: ONDA4ODT MM (15:13)
--- NOTE | 2020-07-31 15:39 | NUR ---
Discharge Summary A/Ox4, pleasant and cooperative with care. Up x 1 SBA to bathroom. Make needs known. Discharge to home. Reviewed discharge paperwork with patient and at the bedside, copy provided. Medicated x 2 for R side abd pain, nausea x 1 with good effect. PO intake good. Meds faxed to [facility]. Discharged with JUANPABLO drain to [facility], intact and draining. 40 cc serosanguineous drainage so far. Patient to f/u outpatient with Dr. Mendoza for drain removal. IV removed, WNL. Personal belongings sent home. Escorted by this RN via w/c. transport home.
== END 2020-07-31 15:21 | disposition home or self-care (01) | DRG 419 ==
LOC: ER 23:00 → SURS 23:01 → UNDODEPER 07-30 02:50 → SURS 07-30 16:55
PROVIDERS: Emergency Medicine; Internal Medicine; Surgery; ADMIT Internal Medicine
PROC: BF53200 Other Imaging of Gallbladder and Bile Ducts using Fluorescing Agent, Indocyanine Green Dye, Intraoperative (ICD-10-PCS; 2020-07-30)
PROC: 0F794DZ Dilation of Common Bile Duct with Intraluminal Device, Percutaneous Endoscopic Approach (ICD-10-PCS; 2020-07-30)
PROC: 0FT44ZZ Resection of Gallbladder, Percutaneous Endoscopic Approach (ICD-10-PCS; principal; 2020-07-30 10:30)
DX: K80.01 Calculus of gallbladder with acute cholecystitis with obstruction (principal); Z85.43 Personal history of malignant neoplasm of ovary; Z92.21 Personal history of antineoplastic chemotherapy; Z20.822 Contact with and (suspected) exposure to COVID-19
CPT/HCPCS: 0241U; 36415; 71045; 74300; 76705; 80053; 81001; 83690; 84484; 85025; 87086; 88304; 93005; 93010; 96365; 96375; 96376; 99285-25; A9270; C1726; C1729; G0378; J0690; J0696; J1100; J1170; J1885; J2250; J2370; J2405; J2543; J2550; J2704; J2765; J3010; J7030; J7120

== ENCOUNTER → 2021-04-23 | Outpatient (CLI) | payer MEDICARE, OTHER ==
[~2021-04-23] MED LIST changes: +DOCU100 PO; +MIRALAX17 GM PO
== END | disposition home or self-care (01) ==
LOC: LAB 17:01 → LAB SHORT 17:01
DX: B37.3 Candidiasis of vulva and vagina (principal)
CPT/HCPCS: 87070; 87205

== ENCOUNTER 2022-01-12 06:07 | Day surgery (SDC) | payer MEDICARE, OTHER ==
[~2022-01-12] VITALS: Ht 162.6 cm; Wt 72.0 kg
[~2022-01-12 06:07] MED LIST changes: +ATOR20 PO; +MULVITA PO
--- NOTE | 2022-01-12 07:40 | NUR ---
PATIENT ARRIVED TO [facility]OVERY ROOM. AWAKENS EASILY AND RESPONDS TO QUESTIONS.
--- NOTE | 2022-01-12 09:35 | NUR ---
12CC AIR REMOVED FROM R WRIST TR BAND. -BLEEDING OR SWELLING. PT AMB TO BATHROOM /C SBA. TOLERATED WELL.
--- NOTE | 2022-01-12 10:15 | NUR ---
R WRIST TR BAND REMOVED. PUNCTURE AREA CLEANED /C NS AND CLOTH DOT DRSG PLACED. -BLEEDING OR SWELLING. PT AND VERBALIZED UNDERSTANDING OF WRITTEN AND VERBAL D/C INST. IV REMOVED. PT TAKEN OUT OF THE HRT CENTER VIA W/C.
== END 2022-01-12 11:01 | disposition home or self-care (01) ==
LOC: MHTC 06:07
DX: I20.9 Angina pectoris, unspecified (principal); I47.1 Supraventricular tachycardia; Z98.51 Tubal ligation status; Z88.5 Allergy status to narcotic agent
CPT/HCPCS: 76937; 93454; 99152; 99153; C1769; C1887; C1894; J1644; J2250; J3010; J7030; J7040; Q9967

== ENCOUNTER 2022-04-12 11:18 | Emergency (ER) | payer MEDICARE, OTHER ==
[~2022-04-12] VITALS: Ht 165.1 cm; Wt 61.2 kg
[2022-04-12 11:52] LABS: BASOPHILS ABSOLUTE AUTO 0.02 K/mm3 (0.00-0.23); BASOPHILS PERCENT AUTO 0 % (0-2); EOSINOPHILS PERCENT AUTO 2 % (0-6); Hematocrit 42.5 % (33.0-51.0); Hemoglobin 13.9 g/dL (11.5-16.0); IMMATURE GRAN ABSOLUTE AUTO 0.01 K/mm3 (0.00-0.10); IMMATURE GRAN PERCENT AUTO 0 % (0-1); LYMPHOCYTES ABSOLUTE AUTO 1.03 K/mm3 (0.84-5.20); LYMPHOCYTES PERCENT AUTO 20 % (21-46); MONOCYTES ABSOLUTE AUTO 0.81 K/mm3 (0.16-1.47); MONOCYTES PERCENT AUTO 16 % (4-13); Mean Corpuscular HGB 30.1 pg (26.0-34.0); Mean Corpuscular HGB Conc 32.7 g/dL (31.5-36.5); Mean Corpuscular Volume 92 fL (80-100); Mean Platelet Volume 9.7 fL (9.1-12.4); NEUTROPHILS ABSOLUTE AUTO 3.12 K/mm3 (1.96-9.15); NEUTROPHILS PERCENT AUTO 61 % (41-73); Platelet Count 439 K/mm3 (150-400); RDW Coefficient Variation 14.7 % (11.7-14.2); RDW Standard Deviation 49.2 fL (35.1-46.3); Red Blood Cell Count 4.62 M/mm3 (3.80-5.20); White Blood Cell Count 5.09 K/mm3 (4.00-11.30)
[2022-04-12 12:10] LABS: Albumin, Blood 3.2 g/dL (3.4-5.0); Albumin/Globulin Ratio 0.8 (0.8-1.8); Bilirubin, Total 0.5 mg/dL (0.1-1.0); Bun/Creatinine Ratio 15.2 (12.0-20.0); Creatinine, Blood 0.53 mg/dL (0.40-1.00); Globulin, Blood 3.8 g/dL (2.2-4.0); Potassium, Blood 3.5 mmol/L (3.5-5.5)
[2022-04-12 13:41] LABS: Source, Urine Clean Catch
[2022-04-12 13:51] LABS: Appearance, Urine Clear (Clear); Blood, Urine Neg (Neg); Color, Urine Amber (P-Yellow); Glucose Qualitative, Urine Neg (Neg); Ketones, Urine 3+ (Neg); Leukocyte Esterase, Urine 1+ (Neg); Nitrite, Urine Neg (Neg); Protein, Urine 1+ (Neg); Urobilinogen, Urine 1+ (Normal)
[2022-04-12 14:02] LABS: Bilirubin, Urine 1+ (Neg)
[2022-04-12 14:03] LABS: Bacteria Mod /hpf; Red Blood Cells, Urine 0-2 /hpf (0-2); Squamous Epithelial Cells Few /hpf (Few)
[2022-04-12] MEDS ORDERED: PROM25 PO (14:28)
[2022-04-12] MEDS ORDERED: ZEBUTAL 50-3251 EAC1 PO (14:28)
== END 2022-04-12 15:07 | disposition home or self-care (01) ==
LOC: ER 11:18
PROVIDERS: Physician Assistant
DX: G43.909 Migraine, unspecified, not intractable, without status migrainosus (principal)
CPT/HCPCS: 36415; 70450; 80053; 81001; 85025; A9270; J2550

== ENCOUNTER 2023-02-20 13:57 | Emergency (ER) | payer MEDICARE, OTHER ==
[~2023-02-20] VITALS: Ht 162.6 cm; Wt 71.7 kg
[~2023-02-20 13:57] MED LIST changes: +ZEBUTAL 50-3251 EAC1 PO
[2023-02-20 14:01] VITALS: BP 116/84
[2023-02-20] MEDS ORDERED: Cephalexin500 MG PO (14:13)
== END 2023-02-20 14:20 | disposition home or self-care (01) ==
LOC: ER 13:57
DX: S61.230A Puncture wound without foreign body of right index finger without damage to nail, initial encounter (principal); L03.011 Cellulitis of right finger; Z23 Encounter for immunization; W57.XXXA Bitten or stung by nonvenomous insect and other nonvenomous arthropods, initial encounter; Z88.5 Allergy status to narcotic agent; I48.0 Paroxysmal atrial fibrillation
CPT/HCPCS: 90471; 90715; 99282-25

== ENCOUNTER 2023-03-09 10:15 | Emergency (ER) | payer MEDICARE, OTHER ==
[~2023-03-09] VITALS: Ht 162.6 cm; Wt 71.7 kg
[~2023-03-09 10:15] MED LIST changes: +Cephalexin500 MG PO
[2023-03-09 10:59] VITALS: BP 124/82
== END 2023-03-09 12:59 | disposition home or self-care (01) ==
LOC: ER 10:15
DX: U07.1 COVID-19 (principal); Z88.5 Allergy status to narcotic agent; Z79.899 Other long term (current) drug therapy; I48.0 Paroxysmal atrial fibrillation
CPT/HCPCS: 99283

== ENCOUNTER 2023-05-31 08:06 | Day surgery (SDC) | payer MEDICARE, OTHER ==
[~2023-05-31] VITALS: Ht 162.6 cm; Wt 74.6 kg
--- NOTE | 2023-05-31 09:52 | NUR ---
05/31/23 0952 Liane Lopez LIDOCAINE 2% WITH EPI 1:100,000 DILUTED 1:1 WITH NORMAL SALINE TO MAKE LIDOCAINE 1% WITH EPI 1:200,000 FOR INJECTION AT THE OPSITE BY DR ALSTON.
--- NOTE | 2023-05-31 11:33 | NUR ---
05/31/23 1133 CARLOS RAMSAY PT IN RECLINER. O2 SATS DIP INTO 80'S. INCENT SPIROM. USED. PT VERY DROWSY. O2 WILL GO UP WHEN INSTRUCTED TO TAKE DEEP BREATH.
[2023-05-31 12:49] VITALS: BP 112/73
== END 2023-05-31 13:06 | disposition home or self-care (01) ==
LOC: ORSCSDS 08:06
PROVIDERS: Otolaryngology
PROC: 0GTG0ZZ Resection of Left Thyroid Gland Lobe, Open Approach (ICD-10-PCS; principal; 2023-05-31 09:15)
DX: E04.1 Nontoxic single thyroid nodule (principal); E78.5 Hyperlipidemia, unspecified; K21.9 Gastro-esophageal reflux disease without esophagitis; G62.9 Polyneuropathy, unspecified
CPT/HCPCS: 88307; A9270; J0330; J1100; J1170; J2250; J2405; J2704; J3010; J7120

== ENCOUNTER 2024-07-17 06:14 | Day surgery (SDC) | payer MEDICARE, OTHER ==
[~2024-07-17] VITALS: Ht 162.6 cm; Wt 73.4 kg
[2024-07-17] MEDS ORDERED: CeFAZolin Sodium 2,000 MG VIAL ONE (06:18)
[2024-07-17] MEDS ORDERED: NS 50 ML IV ONE (06:19)
[2024-07-17] MEDS ORDERED: Lactated Ringer's 1,000 ML IV ONE ×2 (07:04→07:59)
[2024-07-17] MEDS ORDERED: EPINEPhrine HCl 1 MG/ML 1ML Amp ONE (07:06)
[2024-07-17] MEDS ORDERED: Rocuronium Bromide 10 MG/ML 5ML Injection IV ONE ×2 (07:32→07:34)
[2024-07-17] MEDS ORDERED: propofoL 20 ML IV ONE ×2 (07:32→08:38)
[2024-07-17] MEDS ORDERED: FentaNYL Citrate 50 MCG/ML 2 ML Injection ONE ×2 (07:34→09:49)
[2024-07-17] MEDS ORDERED: Bupivacaine 0.5% HCl 5 MG/ML 30MLVIAL INJ ONE ×3 (07:49)
--- NOTE | 2024-07-17 07:56 | NUR ---
07/17/24 0756 Liane Lopez 30ML OF BUPIVACAINE 0.5% MIXED AND VERIFIED WTIH 0.15ML OF EPI (1MG/ML) TO MAKE BUPIVACAINE 0.5% WITH EPI 1:200,000 FOR INJECTION AT THE OPSITE.
[2024-07-17] MEDS ORDERED: HYDROmorphone HCl/Pf 1MG SYR ONE (08:12)
[2024-07-17] MEDS ORDERED: Sugammadex Sodium 200 MG/2ML SDV (100 MG/ML) ONE ×2 (08:17→08:20)
[2024-07-17] MEDS ORDERED: Glycopyrrolate 0.2 MG/ML 5ML VIAL ONE (08:25)
--- NOTE | 2024-07-17 09:03 | NUR ---
07/17/24 0903 Мария Kimble PT SLEEPY, BUT ROUSES EASILY TO VOICE. VSS. DRESSING TO L LEG C/D/I. REPORT FROM HOT KETTLE TENDER & DR. IZAGUIRRE. NO VISIBLE SIGNS OF DISTRESS NOTED.
--- NOTE | 2024-07-17 09:13 | NUR ---
07/17/24 0913 Мария Kimble PT ARRIVES TO SDU ON RA, VSS. PT RESTING QUIETLY ON LEFT SIDE W/ EYES CLOSED, RESPIRATIONS NORMAL & NON-LABORED. NO VISIBLE SIGNS OF DISTRESS NOTED.
[2024-07-17] MEDS ORDERED: Ketorolac Tromethamine 30mg Vial ONE (09:34)
[2024-07-17 09:55] VITALS: BP 130/72
[2024-07-17] MEDS ORDERED: Ondansetron 4 MG SoluTab ONE (10:40)
[2024-07-17] MEDS ORDERED: Scopolamine Hydrobromide Patch ONE (10:51)
== END 2024-07-17 11:08 | disposition home or self-care (01) ==
LOC: ORSCSDS 06:14
PROVIDERS: Orthopaedic Surgery
PROC: 0QP104Z Removal of Internal Fixation Device from Sacrum, Open Approach (ICD-10-PCS; principal; 2024-07-17 07:30)
DX: T84.9XXA Unspecified complication of internal orthopedic prosthetic device, implant and graft, initial encounter (principal); Z96.9 Presence of functional implant, unspecified; K21.9 Gastro-esophageal reflux disease without esophagitis
CPT/HCPCS: A9270; J0171; J0690; J1171; J1885; J2704; J3010; J7120

== ENCOUNTER 2024-09-30 10:01 | Day surgery (SDC) | payer MEDICARE, OTHER ==
[~2024-09-30] VITALS: Ht 162.6 cm; Wt 73.0 kg
[2024-09-30] VITALS (14 sets, daily range): BP systolic 99–137; BP diastolic 28–75
[~2024-09-30 10:01] MED LIST changes: +Lactated Ringer's 1,000 ML IV SCH; +Ondansetron HCl 2 MG / ML 2ML Vial ONE
[2024-09-30] MEDS ORDERED: propofoL 20 ML IV ONE (11:09)
--- NOTE | 2024-09-30 12:12 | NUR ---
09/30/24 1212 Josse Huddleston CONFIRMED AND REVIEWED H&P, MEDCICATIONS, ALLERGIES, MEDICAL HISTORY, RESPIRATORY HISTORY, VITAL SIGNS, 3-LEAD EKG, CONSENTS, AND PHYSICIAN ORDERS. PATIENT CONFIRMS NPO STATUS AND AGREES WITH SCHEDULED PROCEDURE. MONITOR INTACT WITH CONTINUOUS PULSE OXIMETRY, CAPNOGRAPHY, 3-LEAD EKG, INTERMITTENT BP. SUPPLEMENTAL O2 TO BE TITRATED THROUGHOUT PROCEDURE TO MAINTAIN O2 SATURATION ABOVE 90%. PATIENT DETERMINED TO BE ASA APPROPRIATE FOR PROPOFOL SEDATION PRIOR TO START OF PROCEDURE BY DR. BARKER.
--- NOTE | 2024-09-30 13:04 | NUR ---
DISCHARGE NOTE PT A&OX4, BREATHING RA, VSS, NO COMPLAINTS, TOLERATING PO FLUIDS. DRESSING INDEPENDENTLY. Patient up to Ambulate independently. Gait steady. Discharge instructions reviewed with patient. Patient verbalizes understanding. Copy given to patient to take home. Discharged via wheelchair to private car for ride home.
== END 2024-09-30 13:13 | disposition home or self-care (01) ==
LOC: ORSCMMR 10:01 → ORD 10:30 → ORSCMMR 13:13
PROVIDERS: Internal Medicine Gastroenterology
PROC: 0DJD8ZZ Inspection of Lower Intestinal Tract, Via Natural or Artificial Opening Endoscopic (ICD-10-PCS; principal; 2024-09-30 10:30)
DX: Z12.11 Encounter for screening for malignant neoplasm of colon (principal); Z85.43 Personal history of malignant neoplasm of ovary
CPT/HCPCS: J2405; J2704; J7120